=== PATIENT | male | born 2000 | race Caucasian/White ===

== ENCOUNTER 2021-05-14 19:22 | Emergency (ER) | payer SELFPAY ==
[~2021-05-14] VITALS: Ht 177.8 cm; Wt 99.0 kg
[2021-05-14 19:23] VITALS: BP 145/82
[2021-05-14 21:18] LABS: RSV AMPLIFICATION NEGATIVE (NEGATIVE)
== END 2021-05-14 21:55 | disposition left against medical advice (07) ==
LOC: M ED 19:22
DX: Z53.29 Procedure and treatment not carried out because of patient's decision for other reasons (principal)

== ENCOUNTER 2021-08-05 20:08 | Emergency (ER) | payer SELFPAY ==
[~2021-08-05] VITALS: Ht 177.8 cm; Wt 101.2 kg
[2021-08-05] MEDS ORDERED: PROZ10CA7 PO (20:19)
[2021-08-05 21:33] LABS: RSV AMPLIFICATION NEGATIVE (NEGATIVE)
[2021-08-05 22:00] VITALS: BP 160/85
== END 2021-08-05 22:49 | disposition home or self-care (01) ==
LOC: M ED 20:08
DX: J06.9 Acute upper respiratory infection, unspecified (principal); B34.9 Viral infection, unspecified

== ENCOUNTER 2021-08-13 07:24 | Emergency (ER) | payer OTHER, SELFPAY ==
[~2021-08-13] VITALS: Ht 177.8 cm; Wt 101.3 kg
[2021-08-13 07:24] VITALS: BP 177/94
[~2021-08-13 07:24] MED LIST: PROZ10CA7 PO
[2021-08-13] MEDS ORDERED: TRAZ-252 PO (07:31)
[2021-08-13] MEDS ORDERED: MIRA3350 PO (08:30)
== END 2021-08-13 08:40 | disposition home or self-care (01) ==
LOC: M ED 07:24
DX: K60.2 Anal fissure, unspecified (principal); F33.9 Major depressive disorder, recurrent, unspecified; Z79.899 Other long term (current) drug therapy